=== PATIENT | female | born 1940 | race Caucasian/White ===

== ENCOUNTER 2017-05-16 13:54 | Inpatient (IN) | payer OTHER ==
--- NOTE | 2017-05-16 14:38 | CPEKG ---
Heart Rate: 115 RR Interval: 522 QRSD Interval: 88 QT Interval: 336 QTC Interval: 465 QRS Randle: 3 T Wave Randle: 25 EKG Severity - ABNORMAL ECG - EKG Impression: ATRIAL FIBRILLATION Electronically Signed By: Ralph English 16-May-2017 14:47:44
[2017-05-16] MEDS ORDERED: niCARdipine/NACL/200 ML BAG IV ONE (14:44)
[2017-05-16] MEDS ORDERED: DILTIAZEM 25 MG/5 ML VIAL IVP ONE (14:48)
[2017-05-16] MEDS ORDERED: FUROSEMIDE 40 MG/4 ML VIAL IVP ONE (14:48)
--- NOTE | 2017-05-16 14:52 | EDPHY ---
H & P Stated Complaint: SENT FOR Afib/sob/peripheral edema Time Seen by Provider: 05/16/17 14:40 HPI/ROS: CHIEF COMPLAINT: Edema and weight gain HISTORY OF PRESENT ILLNESS: The patient is a 76-year-old female who presented today to her primary care's office Dr. Rodriguez complaining of lower extremity swelling bilaterally and 10 lb weight gain as well as increased shortness of breath with exertion over the last few weeks. She denies recent fevers or illness. She denies chest pain. She denies shortness of breath at baseline. She denies nausea vomiting or diarrhea. See she denies any cardiac or pulmonary history. She was told that she had atrial fibrillation at come to the hospital. She does not notice any palpitations. REVIEW OF SYSTEMS: Constitutional: denies: chills, fever, recent illness, recent injury EENTM: denies: blurred vision, double vision, nose congestion Respiratory: See HPI denies: cough Cardiac: See HPI denies: chest pain, irregular heart rate, lightheadedness, palpitations Gastrointestinal/Abdominal: denies: abdominal pain, diarrhea, nausea, vomiting, blood streaked stools Genitourinary: denies: dysuria, frequency, hematuria, pain Musculoskeletal: denies: joint pain, muscle pain Skin: denies: lesions, rash, jaundice, bruising Neurological: denies: headache, numbness, paresthesia, tingling, dizziness, weakness Hematologic/Lymphatic: denies: blood clots, easy bleeding, easy bruising Immunologic/allergic: denies: HIV/AIDS, transplant EXAM: GENERAL: Well-appearing, well-nourished and in no acute distress. HEAD: Atraumatic, normocephalic. EYES: Pupils equal round and reactive to light, extraocular movements intact, sclera anicteric, conjunctiva are normal. ENT: TMs normal, nares patent, oropharynx clear without exudates. Moist mucous membranes. NECK: Normal range of motion, supple without lymphadenopathy or JVD. LUNGS: Mild crackles bilateral bases . HEART: Irregular rate and rhythm without murmurs, rubs or gallops. ABDOMEN: Soft, nontender, normoactive bowel sounds. No guarding, no rebound. No masses appreciated. BACK: No CVA tenderness, no spinal tenderness, step-offs or deformities EXTREMITIES: Normal range of motion, no pitting or edema. No clubbing or cyanosis. NEUROLOGICAL: Cranial nerves II through XII grossly intact. Normal speech, normal gait. 5/5 strength, normal movement in all extremities, normal sensation PSYCH: Normal mood, normal affect. SKIN: Warm, dry, normal turgor, no visible rashes or lesions. Source: Patient Exam Limitations: No limitations - Personal History Current Tetanus/Diphtheria Vaccine: Yes - Medical/Surgical History Hx Asthma: No Hx Chronic Respiratory Disease: No Hx Diabetes: No Hx Cardiac Disease: No Hx Renal Disease: No Hx Cirrhosis: No Hx Alcoholism: No Hx HIV/AIDS: No Hx Splenectomy or Spleen Trauma: No Other PMH: HTN, anemia, l total knee, hernia repair surgery x2, myelofibrosis, cataract sgy, arthritis - Family History Significant Family History: No pertinent family hx - Social History Smoking Status: Former smoker Alcohol Use: Sober Drug Use: None Constitutional: Initial Vital Signs Temperature (C) 36.7 C 05/16/17 14:22 Heart Rate 124 H 05/16/17 14:22 Respiratory Rate 20 05/16/17 14:22 Blood Pressure 141/82 H 05/16/17 14:22 O2 Sat (%) 98 05/16/17 14:22 O2 Delivery Mode Room Air Allergies/Adverse Reactions: Penicillins Allergy (Verified 05/16/17 14:21) Itching BEE STINGS Allergy (Uncoded 12/29/14 15:20) Home Medications: Medication Instructions Recorded Cholecalciferol Vit D3 [Vitamin D3 1,000 units PO DAILY 10/08/15 (*)] Lisinopril [Zestril 5 mg (*)] 5 mg PO DAILY 10/08/15 Estradiol [Yuvafem] 10 mcg [facility] 05/16/17 Medical Decision Making - Diagnostics EKG Interpretation: An EKG obtained and was read and documented in trace view. Please see trace view for full reading and report. Atrial fibrillation, new compared to previous Imaging Results: Imaging Impressions Chest X-Ray 05/16/17 14:48 Impression: Small subpulmonic right pleural effusion, new. Borderline cardiac enlargement.. Imaging: Discussed imaging studies w/ inspector handbag frames Radiologist ED Course/Re-evaluation: The patient is feeling better after Lasix. Her heart rate was controlled initially with diltiazem but then rebounded. I will start her on a drip. I spoke with Dr. Khoi Galan who will admit to the hospital service. Differential Diagnosis: Partial list of the Differential diagnosis considered include but were not limited to; CHF exacerbation, pulmonary edema, atrial fibrillation and although unlikely based on the history and physical exam, I also considered infection, acute coronary disease. - Data Points Laboratory Results: Laboratory Results 05/16/17 14:37 05/16/17 14:37 05/16/17 05/16/17 05/16/17 14:37 14:37 14:37 WBC 4.61 10^3/uL 10^3/uL (3.80-9.50) RBC 3.51 10^6/uL L 10^6/uL (4.18-5.33) Hgb 9.9 g/dL L g/dL (12.6-16.3) Hct 32.3 % L % (38.0-47.0) MCV 92.0 fL fL (81.5-99.8) MCH 28.2 pg pg (27.9-34.1) MCHC 30.7 g/dL L g/dL (32.4-36.7) RDW 20.2 % H % (11.5-15.2) Plt Count 125 10^3/uL L 10^3/uL (150-400) MPV 9.9 fL fL (8.7-11.7) Neut % (Auto) Not Reported Lymph % (Auto) Not Reported Weber % (Auto) Not Reported Eos % (Auto) Not Reported Baso % (Auto) Not Reported Nucleat RBC Rel Count 3.9 % H % (0.0-0.2) Absolute Neuts (auto) Not Reported Absolute Lymphs (auto) Not Reported Absolute Monos (auto) Not Reported Absolute Eos (auto) Not Reported Absolute Basos (auto) Not Reported Absolute Nucleated RBC 0.18 10^3/uL H 10^3/uL (0-0.01) Immature Gran % Not Reported Seg Neutrophils % 36 % % Band Neutrophils % 12 % % Lymphocytes % 24 % % Monocytes % 9 % % Eosinophils % 2 % % Metamyelocytes % 8 % % Myelocytes % 6 % % Promyelocytes % 1 % % Blast Cells % 2 % % Immature Gran # Not Reported Absolute Seg Neuts 1.66 10^/uL L 10^/uL (1.70-6.50) Absolute Band Neuts 0.55 10^3/uL 10^3/uL (0.00-0.70) Absolute Lymphocytes 1.11 10^3/uL 10^3/uL (1.00-3.00) Absolute Monocytes 0.41 10^3/uL 10^3/uL (0.30-0.80) Absolute Eosinophils 0.09 10^3/uL 10^3/uL (0.03-0.40) Absolute Metamyelocyte 0.37 10^3/mL H 10^3/mL (0.00-0.00) Absolute Myelocytes 0.28 10^3/mL H 10^3/mL (0.00-0.00) Absolute Promyelocytes 0.05 10^3/uL H 10^3/uL (0.00-0.00) Nucleated RBCs 4 /100 WBC H /100 WBC (0-0) Atypical Lymphocytes 1+ H Absolute Blast Cells 0.09 10^3/uL H 10^3/uL (0.00-0.00) Platelet Estimate ADEQUATE (ADEQ) Polychromasia 1+ H Hypochromasia 1+ H Microcytic Cells 1+ H Tear Drop Cells 1+ H Smear Review By Tatyana COOL MD PT 14.3 SEC SEC (12.0-15.0) INR 1.12 (0.83-1.16) APTT 29.8 SEC SEC (23.0-38.0) Sodium 136 mEq/L mEq/L (134-144) Potassium 5.0 mEq/L mEq/L (3.5-5.2) Chloride 101 mEq/L mEq/L (97-110) Carbon Dioxide 23 mEq/l mEq/l (22-31) Anion Gap 12 mEq/L mEq/L (8-16) BUN 17 mg/dL mg/dL (7-23) Creatinine 0.7 mg/dL mg/dL (0.6-1.0) Estimated GFR > 60 Glucose 105 mg/dL H mg/dL (70-100) Calcium 9.4 mg/dL mg/dL (8.5-10.4) Total Bilirubin 1.1 mg/dL mg/dL (0.1-1.4) Conjugated Bilirubin 0.4 mg/dL mg/dL (0.0-0.5) Unconjugated Bilirubin 0.7 mg/dL mg/dL (0.0-1.1) AST 47 IU/L H IU/L (14-46) ALT 79 IU/L H IU/L (9-52) Alkaline Phosphatase 215 IU/L H IU/L (38-126) Troponin I < 0.012 ng/mL ng/mL (0.000-0.034) NT-Pro-B Natriuret Pep 2070 pg/mL H pg/mL (0-450) Total Protein 7.2 g/dL g/dL (6.3-8.2) Albumin 4.5 g/dL g/dL (3.5-5.0) Lipase 37 IU/L IU/L (23-300) Medications Given: Enoxaparin Sodium (Lovenox) 60 mg SC BID [facility] Stop: 11/12/17 17:06 Last Admin: 05/16/17 22:06 Dose: 60 mg Metoprolol Tartrate (Lopressor) 25 mg PO BID [facility] Stop: 11/12/17 17:07 Last Admin: 05/16/17 22:07 Dose: Not Given Discontinued Medications Diltiazem HCl (Cardizem 25 Mg/5 Ml Vial) 10 mg IVP EDNOW ONE Stop: 05/16/17 14:49 Last Admin: 05/16/17 15:04 Dose: 10 mg Furosemide (Lasix Injection) 40 mg IVP EDNOW ONE Stop: 05/16/17 14:49 Last Admin: 05/16/17 15:04 Dose: 40 mg Diltiazem HCl 125 mg/ Dextrose 125 mls @ 0 mls/hr IV EDNOW ONE; As Directed PRN Reason: Protocol Stop: 05/16/17 15:54 Last Admin: 05/16/17 16:02 Dose: Not Given Departure - Departure Disposition: [facility] Acute Clinical Impression: Atrial fibrillation Qualifiers: Atrial fibrillation type: unspecified Qualified Code(s): I48.91 - Unspecified atrial fibrillation Pulmonary edema Qualifiers: Chronicity: acute Qualified Code(s): J81.0 - Acute pulmonary edema Condition: Fair
[2017-05-16 14:54] LABS: ABSOLUTE NRBC COUNT 0.18 10^3/uL (0-0.01); ADD DIFF? YES; ADD MORPH? YES; HEMATOCRIT 32.3 % (38.0-47.0); HEMOGLOBIN 9.9 g/dL (12.6-16.3); LEFT SHIFT FLG 160 (0-99); LIPEMIA HEMOLYSIS FLAG 80 (0-99); MEAN CELL HEMOGLOBIN 28.2 pg (27.9-34.1); MEAN CELL HEMOGLOBIN CONCENTR. 30.7 g/dL (32.4-36.7); MEAN PLATELET VOLUME 9.9 fL (8.7-11.7); NRBC-AUTO% 3.9 % (0.0-0.2); PLATELET CLUMPS FLAG 20 (0-99); PLATELET COUNT 125 10^3/uL (150-400); RED BLOOD CELL COUNT 3.51 10^6/uL (4.18-5.33); RED CELL DISTRIBUTION WIDTH 20.2 % (11.5-15.2)
[2017-05-16 14:55] LABS: ATYPICAL LYMPHOCYTE FLAG 120 (0-99); FRAGMENT RBC FLAG 100 (0-99)
[2017-05-16 15:04] LABS: INR 1.12 (0.83-1.16); PROTIME(PATIENT) 14.3 SEC (12.0-15.0)
[2017-05-16 15:05] LABS: APTT 29.8 SEC (23.0-38.0)
[2017-05-16 15:07] LABS: ALANINE AMINOTRANSFERASE 79 IU/L (9-52); ALBUMIN 4.5 g/dL (3.5-5.0); ALKALINE PHOSPHATASE 215 IU/L (38-126); ANION GAP 12 mEq/L (8-16); ASPARTATE AMINOTRANSFERASE 47 IU/L (14-46); BILIRUBIN,TOTAL 1.1 mg/dL (0.1-1.4); BILIRUBIN-CONJUGATED 0.4 mg/dL (0.0-0.5); BILIRUBIN-UNCONJUGATED 0.7 mg/dL (0.0-1.1); CALCIUM 9.4 mg/dL (8.5-10.4); CARBON DIOXIDE 23 mEq/l (22-31); CHLORIDE 101 mEq/L (97-110); CREATININE 0.7 mg/dL (0.6-1.0); GLOMERULAR FILTRATION RATE > 60; GLUCOSE 105 mg/dL (70-100); SODIUM 136 mEq/L (134-144); TOTAL PROTEIN 7.2 g/dL (6.3-8.2)
[2017-05-16 15:19] LABS: TROPONIN I < 0.012 ng/mL (0.000-0.034)
[2017-05-16 15:43] LABS: ADD SCAN? YES; SCAN POSITIVE
[2017-05-16] MEDS ORDERED: DILTIAZEM 125 MG in D5W 125 ML IV ONE (15:53)
[2017-05-16 15:55] LABS: HYPOCHROMIA 1+; MICROCYTES 1+; PLATELET ESTIMATE ADEQUATE (ADEQ); POLYCHROMASIA 1+
[2017-05-16] MEDS ORDERED: ONDANSETRON DISINTEGRATING 4 MG TAB PO PRN (17:02)
[2017-05-16] MEDS ORDERED: ONDANSETRON 4 MG/2 ML VIAL IVP PRN (17:02)
[2017-05-16] MEDS ORDERED: ACETAMINOPHEN 325 MG TAB PO PRN (17:02)
--- NOTE | 2017-05-16 17:13 | PDGENHP ---
History and Physical - Chief Complaint Acute edema - History of Present Illness Primary care provider: Dr. Ayleen Rodriguez Primary oncologist: Dr. Nay Ferris Primary general surgeon: Dr. Olivia Swan Primary orthopedist: Dr. Rodríguez HPI: 76-year-old female presents with acute edema characterized as swelling located in the bilateral lower extremities as well as abdomen with associated shortness of breath, 10 lb weight gain over 1 week. Patient reports that approximately 1/2 weeks ago, she began experiencing shortness of breath which was exacerbated by activity and exertion. Is alleviated by rest. Was not modified by body position or lying supine. She then noted weight gain and significant lower extremity edema approximately 4 days ago. She denies any chest pain or palpitations. She reports that prior to onset of symptoms, she had otherwise been feeling well. She reports that her appetite has been good and her oral intake of solids and liquids has been adequate. She was at Dr. Ayleen Rodriguez office for evaluation when it was noted that her heart rate was elevated and she was in atrial fibrillation. History Information - Allergies/Home Medication List Allergies/Adverse Reactions: Penicillins Allergy (Verified 05/16/17 14:21) Itching BEE STINGS Allergy (Uncoded 12/29/14 15:20) Home Medications: Cholecalciferol Vit D3 [Vitamin D3 (*)] 1,000 units PO DAILY 10/08/15 [Last Taken 10/24/15] Lisinopril [Zestril 5 mg (*)] 5 mg PO DAILY 10/08/15 [Last Taken 05/16/17] Estradiol [Yuvafem] 10 mcg [facility] 05/16/17 [Last Taken 05/14/17] I have personally reviewed and updated: family history, medical history, social history, surgical history - Past Medical History Additional medical history: Myelofibrosis. Osteoarthritis. Skin cancer. Macular degeneration. Recurrent right inguinal hernia. Hypertension. Anemia with baseline hemoglobin 8-9 - Surgical History Additional surgical history: Bilateral hernia repair. TKA. Cataract surgery. Left hip steroid injection - Family History Additional family history: Brother with lung cancer, sister with venous thromboembolism, nobody with atrial fibrillation - Social History Smoking Status: Former smoker Alcohol Use: Sober (No history of alcohol withdrawal) Drug Use: None Additional social history: Independent in ADLs Review of Systems ROS: 10pt was reviewed & negative except for what was stated in HPI & below Constitutional: Reports: other (Weight gain) Cardiac: Reports: edema Respiratory: Reports: shortness of breath Physical Exam Temp Pulse Resp BP Pulse Ox 36.7 C 104 H 17 94/74 L 96 05/16/17 14:22 05/16/17 16:01 05/16/17 15:07 05/16/17 16:01 05/16/17 15:07 Constitutional: no apparent distress, appears nourished, not in pain, No uncomfortable Eyes: PERRL, anicteric sclera, EOMI Ears, Nose, Mouth, Throat: moist mucous membranes, hearing normal, ears appear normal, no oral mucosal ulcers Cardiovascular: irregularly irregular, JVD, tachycardia, edema (1+ bilateral lower extremity), No systolic murmur Respiratory: no respiratory distress, no rales or rhonchi, clear to auscultation Gastrointestinal: normoactive bowel sounds, soft, non-tender abdomen, distension (Moderately), other (Splenomegaly, nontender), No no palpable masses , No guarding Skin: warm, normal color, no rashes or abrasions, no fluctuance, no induration, No mottled Neurologic: AAOx3, sensation intact bilaterally, No weakness (Motor 5/5 bilateral lower extremity) Psychiatric: interacting appropriately, not anxious, not encephalopathic, thought process linear Lab Data & Imaging Review 05/16/17 14:37 05/16/17 14:37 WBC 4.61 10^3/uL (3.80-9.50) 05/16/17 14:37 RBC 3.51 10^6/uL (4.18-5.33) L 05/16/17 14:37 Hgb 9.9 g/dL (12.6-16.3) L 05/16/17 14:37 Hct 32.3 % (38.0-47.0) L 05/16/17 14:37 MCV 92.0 fL (81.5-99.8) 05/16/17 14:37 MCH 28.2 pg (27.9-34.1) 05/16/17 14:37 MCHC 30.7 g/dL (32.4-36.7) L 05/16/17 14:37 RDW 20.2 % (11.5-15.2) H 05/16/17 14:37 Plt Count 125 10^3/uL (150-400) L 05/16/17 14:37 MPV 9.9 fL (8.7-11.7) 05/16/17 14:37 Neut % (Auto) Not Reported 05/16/17 14:37 Lymph % (Auto) Not Reported 05/16/17 14:37 Giles % (Auto) Not Reported 05/16/17 14:37 Eos % (Auto) Not Reported 05/16/17 14:37 Baso % (Auto) Not Reported 05/16/17 14:37 Nucleat RBC Rel Count 3.9 % (0.0-0.2) H 05/16/17 14:37 Absolute Neuts (auto) Not Reported 05/16/17 14:37 Absolute Lymphs (auto) Not Reported 05/16/17 14:37 Absolute Monos (auto) Not Reported 05/16/17 14:37 Absolute Eos (auto) Not Reported 05/16/17 14:37 Absolute Basos (auto) Not Reported 05/16/17 14:37 Absolute Nucleated RBC 0.18 10^3/uL (0-0.01) H 05/16/17 14:37 Immature Gran % Not Reported 05/16/17 14:37 Seg Neutrophils % 36 % 05/16/17 14:37 Band Neutrophils % 12 % 05/16/17 14:37 Lymphocytes % 24 % 05/16/17 14:37 Monocytes % 9 % 05/16/17 14:37 Eosinophils % 2 % 05/16/17 14:37 Metamyelocytes % 8 % 05/16/17 14:37 Myelocytes % 6 % 05/16/17 14:37 Promyelocytes % 1 % 05/16/17 14:37 Blast Cells % 2 % 05/16/17 14:37 Immature Gran # Not Reported 05/16/17 14:37 Absolute Seg Neuts 1.66 10^/uL (1.70-6.50) L 05/16/17 14:37 Absolute Band Neuts 0.55 10^3/uL (0.00-0.70) 05/16/17 14:37 Absolute Lymphocytes 1.11 10^3/uL (1.00-3.00) 05/16/17 14:37 Absolute Monocytes 0.41 10^3/uL (0.30-0.80) 05/16/17 14:37 Absolute Eosinophils 0.09 10^3/uL (0.03-0.40) 05/16/17 14:37 Absolute Metamyelocyte 0.37 10^3/mL (0.00-0.00) H 05/16/17 14:37 Absolute Myelocytes 0.28 10^3/mL (0.00-0.00) H 05/16/17 14:37 Absolute Promyelocytes 0.05 10^3/uL (0.00-0.00) H 05/16/17 14:37 Nucleated RBCs 4 /100 WBC (0-0) H 05/16/17 14:37 Atypical Lymphocytes 1+ H 05/16/17 14:37 Absolute Blast Cells 0.09 10^3/uL (0.00-0.00) H 05/16/17 14:37 Platelet Estimate ADEQUATE (ADEQ) 05/16/17 14:37 Polychromasia 1+ H 05/16/17 14:37 Hypochromasia 1+ H 05/16/17 14:37 Microcytic Cells 1+ H 05/16/17 14:37 Tear Drop Cells 1+ H 05/16/17 14:37 Smear Review By Tatyana COOL MD 05/16/17 14:37 PT 14.3 SEC (12.0-15.0) 05/16/17 14:37 INR 1.12 (0.83-1.16) 05/16/17 14:37 APTT 29.8 SEC (23.0-38.0) 05/16/17 14:37 Sodium 136 mEq/L (134-144) 05/16/17 14:37 Potassium 5.0 mEq/L (3.5-5.2) 05/16/17 14:37 Chloride 101 mEq/L (97-110) 05/16/17 14:37 Carbon Dioxide 23 mEq/l (22-31) 05/16/17 14:37 Anion Gap 12 mEq/L (8-16) 05/16/17 14:37 BUN 17 mg/dL (7-23) 05/16/17 14:37 Creatinine 0.7 mg/dL (0.6-1.0) 05/16/17 14:37 Estimated GFR > 60 05/16/17 14:37 Glucose 105 mg/dL (70-100) H 05/16/17 14:37 Calcium 9.4 mg/dL (8.5-10.4) 05/16/17 14:37 Total Bilirubin 1.1 mg/dL (0.1-1.4) 05/16/17 14:37 Conjugated Bilirubin 0.4 mg/dL (0.0-0.5) 05/16/17 14:37 Unconjugated Bilirubin 0.7 mg/dL (0.0-1.1) 05/16/17 14:37 AST 47 IU/L (14-46) H 05/16/17 14:37 ALT 79 IU/L (9-52) H 05/16/17 14:37 Alkaline Phosphatase 215 IU/L (38-126) H 05/16/17 14:37 Troponin I < 0.012 ng/mL (0.000-0.034) 05/16/17 14:37 NT-Pro-B Natriuret Pep 2070 pg/mL (0-450) H 05/16/17 14:37 Total Protein 7.2 g/dL (6.3-8.2) 05/16/17 14:37 Albumin 4.5 g/dL (3.5-5.0) 05/16/17 14:37 Lipase 37 IU/L (23-300) 05/16/17 14:37 Visualized and Interpreted Chest x-ray results: Yes Chest X-Ray results: no infiltrate, other (Cardiomegaly) Visualized and Interpreted EKG results: Yes EKG Interpretation: Positive for: other (Atrial fibrillation with rapid ventricular response) Assessment & Plan Assessment: 76-year-old female presents with new onset atrial fibrillation with acute rapid ventricular response and subsequent acute diastolic congestive heart failure exacerbation Plan: 1. Atrial fibrillation. Acute, new problem this provider, further workup indicated. New onset, acute RVR, discussed with Dr. Bebo Montoya and he has reported to me that the patient received 10 mg of IV diltiazem in the emergency department, her rate subsequently slowed, but her systolic blood pressure also declined, decision made in the emergency department not to administer diltiazem drip given that her heart rate was around 100 -administered 25 mg of oral metoprolol now, gauge effect, up titrate if needed -systemically anticoagulated case the patient chemically cardiovert, discussed with Dr. David Pena, plan for abby with DC cardioversion tomorrow a.m. if she remains in AFib -get TSH -get echocardiogram -will need cardiac risk stratification, but not in the setting of rapid ventricular response 2. Acute diastolic congestive heart failure exacerbation. Evidenced by 10 lb weight gain, lower extremity edema, abdominal bloating, secondary to rapid ventricular response and impaired diastole -status post Lasix in the emergency department, with good urine output -hold on further Lasix, goal will be rate control and then diuresis once that has been achieved -monitor I&Os, weights, creatinine, potassium 3. Myelofibrosis. Chronic, reviewed outside records including 07/12/[address] Liz Moreno, discussing patient's most recent hospitalization for neutropenic fever in the setting of myelofibrosis with baseline hemoglobin level around 8-9 -no indication for transfusion -platelet level is a safe threshold for systemic anticoagulation 4. Transaminitis. Acute, most likely secondary to hepatic congestion in the setting of above, continue to monitor as we rate control 5. Hypertension. Chronic, hold lisinopril as we are introducing beta-ceferino Diet. Cardiac, NPO after midnight prophylaxis. High risk patient, systemic anticoagulation indicated Code. Do not resuscitate per patient, daughter is MPOA Disposition. Anticipated discharge is 05/17/2017, pending stabilization of condition as outlined above. If patient requires greater than 48 hours inpatient hospitalization for further stabilization or diagnostic workup, she will be upgraded to inpatient admission status at that time.
[2017-05-16] MEDS: ENOXAPARIN 60 MG/0.6 ML SYR SC SCH ×2 (17:57→22:06)
[2017-05-16] MEDS: METOPROLOL TARTRATE 25 MG TAB PO SCH ×2 (17:57→22:07)
[2017-05-17 05:03] LABS: INR 1.26 (0.83-1.16); PROTIME(PATIENT) 15.8 SEC (12.0-15.0)
[2017-05-17 05:04] LABS: APTT 38.7 SEC (23.0-38.0)
[2017-05-17 05:15] LABS: ASPARTATE AMINOTRANSFERASE 31 IU/L (14-46); BILIRUBIN,TOTAL 1.1 mg/dL (0.1-1.4); CARBON DIOXIDE 25 mEq/l (22-31); CREATININE 0.7 mg/dL (0.6-1.0); GLOMERULAR FILTRATION RATE > 60; MAGNESIUM 2.1 mg/dL (1.6-2.3); POTASSIUM 3.9 mEq/L (3.5-5.2); TOTAL PROTEIN 5.9 g/dL (6.3-8.2)
[2017-05-17 05:23] LABS: ALANINE AMINOTRANSFERASE 66 IU/L (9-52); ALBUMIN 3.5 g/dL (3.5-5.0); ALKALINE PHOSPHATASE 184 IU/L (38-126); ANION GAP 9 mEq/L (8-16); CHLORIDE 104 mEq/L (97-110); GLUCOSE 94 mg/dL (70-100); SODIUM 138 mEq/L (134-144)
[2017-05-17 05:51] LABS: ABSOLUTE NRBC COUNT 0.14 10^3/uL (0-0.01); ADD DIFF? YES; ADD MORPH? YES; ADD SCAN? NO; ATYPICAL LYMPHOCYTE FLAG 100 (0-99); FRAGMENT RBC FLAG 80 (0-99); HEMATOCRIT 27.6 % (38.0-47.0); HEMOGLOBIN 8.3 g/dL (12.6-16.3); LEFT SHIFT FLG 140 (0-99); LIPEMIA HEMOLYSIS FLAG 80 (0-99); MEAN CELL HEMOGLOBIN 27.6 pg (27.9-34.1); MEAN CELL HEMOGLOBIN CONCENTR. 30.1 g/dL (32.4-36.7); MEAN CELL VOLUME 91.7 fL (81.5-99.8); MEAN PLATELET VOLUME 9.4 fL (8.7-11.7); PLATELET CLUMPS FLAG 10 (0-99); PLATELET COUNT 116 10^3/uL (150-400); RED BLOOD CELL COUNT 3.01 10^6/uL (4.18-5.33)
[2017-05-17 05:52] LABS: TROPONIN I < 0.012 ng/mL (0.000-0.034)
[2017-05-17 06:02] LABS: MICROCYTES 1+; PLATELET ESTIMATE DECREASED (ADEQ); POLYCHROMASIA 1+
[2017-05-17 06:03] LABS: ELLIPTOCYTES 1+
[2017-05-17] MEDS ORDERED: METOPROLOL TARTRATE 25 MG TAB PO ONE (09:20)
[2017-05-17] MEDS: METOPROLOL TARTRATE 50 MG TAB PO SCH ×2 (09:53→21:11)
[2017-05-17] MEDS: CHOLECALCIFEROL VIT D3 1,000 UNITS TAB PO SCH (09:53)
[2017-05-17] MEDS: ENOXAPARIN 60 MG/0.6 ML SYR SC SCH (09:54)
[2017-05-17] MEDS ORDERED: METOPROLOL TARTRATE 25 MG TAB PO SCH (10:00)
--- NOTE | 2017-05-17 10:27 | ECHO ---
[id number] + + [address] : : [place] [address] : : [phone] + + Adult Echocardiographic Report + ------+ :Name: DEBBIGIANAWAQAS MStudy Date: 05/17/2017 08:00 AM : : Hospital Admission Number: [id number] Locatio n: 207: :: 1940 Gender: Female Height: 5 in : :Age: 76 yrs Race: WH Weight: 137 lb : :Reason For Study: Eval for cardiomyopathy/new AF : : BSA: 0.26 meter s2 : + ------+ MMode/2D Measurements & Calculations IVSd: 0.70 cm LVIDd: 4.4 cm FS: 38.1 % MV Diam: 3.0 cm LVPWd: 0.90 cm LVIDs: 2.7 cm EDV(Teich): 88.2 ml ESV(Teich): 27.8 ml EF(Teich): 68.5 % Ao root diam: LVOT diam: 1.9 cmLVLd ap4: 7.8 cm SV(MOD-sp4): 2.9 cm LVOT area: EDV(MOD-sp4): 38.0 ml LA dimension: 2.8 cm2 58.0 ml 4.0 cm LVLs ap4: 6.8 cm ESV(MOD-sp4): 20.0 ml EF(MOD-sp4): 65.5 % Normal Measurement Values: + + :LVIDd (3.5-5.7cm) IVSd (0.6-1.1cm) LVPWd (0.6-1.1cm) Aortic Root (2.0-3.7cm)Left Atrium (1.5-4.0cm): :LV Vol(d) (76-115ml) LV Vol(s) (29-48ml) Ejec Fraction (50-65%)PV Nick (0.6- 1.2m/s) TV Nick (0.4-1.0m/s) : :MV E Nick (0.8-1.0m/s)MV A Nick (0.3-1.0m/s)LVOT Nick (0.7-1.2m/s) Asc Ao Nick ( 0.9-1.8m/s) : + + Doppler Measurements & Calculations MV E max nick: MV V2 max: Ao V2 max: LV V1 max: 111.0 cm/sec 109.0 cm/sec 187.0 cm/sec 76.7 cm/sec MV max P.8 mmHg Ao max PG: LV V1 max PG: MV V2 mean: 15.6 mmHg 2.4 mmHg 60.8 cm/sec Ao mean PG: LV V1 mean PG: MV mean P.0 mmHg3.0 mmHg 1.0 mmHg MV V2 VTI: 16.2 cm Ao V2 mean: LV V1 mean: MV area (1 diam): 85.2 cm/sec 46.5 cm/sec 7.1 cm2 Ao V2 VTI: 22.1 cm LV V1 VTI: 14.2 cm MARGIE(I,D): 1.8 cm2 MVA(VTI): 2.5 cm2 MV Flow area(1diam):MARGIE(V,D): 1.2 cm2 7.1 cm2 MR max nick: MR(RF 1 diam): SV(MV 1 diam): TR max nick: 543.0 cm/sec 16.7 % 114.5 ml 354.0 cm/sec MR max PG: SI(MV 1 diam): TR max P.9 mmHg 436.5 ml/m2 50.1 mmHg SV(LVOT): 40.3 ml RAP systole: 15.0 mmHg RVSP(TR): 65.1 mmHg RF(MV,Ao)(1 diam): -0.27 RF(MV,LVOT)(1diam): 0.65 Left Ventricle The left ventricle is normal in size. There is normal left ventricular wall thickness. Left ventricular systolic function is normal. Ejection Fraction = 65-70%. No regional wall motion abnormalities noted. Right Ventricle The right ventricle is normal in size and function. Atria The left atrium is mild to moderately dilated. The right atrium is severely dilated. The interatrial septum is intact with no evidence for an atrial septal defect. Mitral Valve The mitral valve is normal in structure and function. There is no evidence of mitral valve prolapse. There is no mitral valve stenosis. There is moderate mitral regurgitation. Tricuspid Valve Normal tricuspid valve. There is severe tricuspid regurgitation. Right ventricular systolic pressure is 65-70mmHg. There is Doppler evidence for moderate pulmonary hypertension. Aortic Valve The aortic valve is trileaflet. The aortic valve opens well. There is no aortic stenosis. There is no aortic insufficiency. Pulmonic Valve The pulmonic valve is normal in structure and function. Mild pulmonic valvular regurgitation. Great Vessels The aortic root is normal size. Pericardium/Pleural trivial pericardial effusion. Conclusion A complete two-dimensional transthoracic echocardiogram was performed (2D, M-mode, Doppler and color flow Doppler). The patient has a dilated IVC. Left ventricular systolic function is normal. Ejection Fraction = 65-70%. The left atrium is mild to moderately dilated. The right atrium is severely dilated. There is moderate mitral regurgitation. There is severe tricuspid regurgitation. Right ventricular systolic pressure is 65-70mmHg. There is Doppler evidence for moderate pulmonary hypertension. Mild pulmonic valvular regurgitation. trivial pericardial effusion. The patient has a dilated IVC. Final Reading Physician: Dario Kendall signed on 05/17/2017 10:25 AM Ordering Physician: Adan Hightower Performed By: Andria Taveras RDCS
[2017-05-17 11:08] LABS: INR 1.24 (0.83-1.16); PROTIME(PATIENT) 15.6 SEC (12.0-15.0)
[2017-05-17 11:09] LABS: APTT 37.7 SEC (23.0-38.0)
[2017-05-17 11:12] LABS: CALCIUM 8.9 mg/dL (8.5-10.4); CREATININE 0.6 mg/dL (0.6-1.0); GLOMERULAR FILTRATION RATE > 60; GLUCOSE 88 mg/dL (70-100); MAGNESIUM 2.1 mg/dL (1.6-2.3)
[2017-05-17] MEDS: METOPROLOL TARTRATE 25 MG TAB PO SCH (11:13)
[2017-05-17 11:59] LABS: ANION GAP 13 mEq/L (8-16); CARBON DIOXIDE 23 mEq/l (22-31); CHLORIDE 105 mEq/L (97-110); POTASSIUM 4.5 mEq/L (3.5-5.2); SODIUM 141 mEq/L (134-144)
--- NOTE | 2017-05-17 12:48 | PDANEPAE ---
ANE History of Present Illness 76 yo female with 2 weeks of Afib with RVR and fatigue. ANE Past Medical History - Cardiovascular History Hx Hypertension: Yes Hx Arrhythmias: Yes Hx Chest Pain: No Hx Coronary Artery / Peripheral Vascular Disease: No Hx CHF / Valvular Disease: No Hx Palpitations: No Cardiovascular History Comment: PCP MONITORS BP MEDS - Pulmonary History Hx COPD: No Hx Asthma/Reactive Airway Disease: No Hx Recent Upper Respiratory Infection: No Hx Oxygen in Use at Home: No Hx Sleep Apnea: No - Neurologic History Hx Cerebrovascular Accident: No Hx Seizures: No Hx Dementia: No - Endocrine History Hx Diabetes: No - Renal History Hx Renal Disorders: Yes Renal History Comment: HX OF UTI'S - Liver History Hx Hepatic Disorders: No - Neurological & Psychiatric Hx Hx Neurological and Psychiatric Disorders: No - Cancer History Hx Cancer: No Cancer History Comment: SQUAMOUS CELL REMOVED FROM LEGS AND FOREHEAD - Congenital Disorder History Hx Congenital Disorders: No - GI History Hx Gastrointestinal Disorders: Yes Gastrointestinal History Comment: CONSTIPATION- USES MOM PRN - Other Health History Other Health History: MYELOFIBROMA W/SPLENOMEGALY. -TRANSFUSION 07/09/2015. EYE INJECTIONS FOR MAC DEGENERATION Q3-4 MONTHS. - Chronic Pain History Chronic Pain: Yes (HIP PAIN) - Surgical History Prior Surgeries: L ING HERNIA 12/2014. LEFT KNEE SCOPE 12/2012. CATARACTS LEFT 2011 RIGHT 2012. BILATERAL INGUINAL HERNIA REPAIR 2005. SINUS SURGERY 2005 ANE Review of Systems Review of Systems: - Exercise capacity METS Comment: No URI/fever x2 weeks. Chronic cough. ANE Patient History - Allergies Allergies/Adverse Reactions: Penicillins Allergy (Verified 05/16/17 14:21) Itching BEE STINGS Allergy (Uncoded 12/29/14 15:20) - Home Medications Home medications: home medication list seen and reviewed Home Medications: Cholecalciferol Vit D3 [Vitamin D3 (*)] 1,000 units PO DAILY 10/08/15 [Last Taken 10/24/15] Lisinopril [Zestril 5 mg (*)] 5 mg PO DAILY 10/08/15 [Last Taken 05/16/17] Estradiol [Yuvafem] 10 mcg VG SUTH 05/16/17 [Last Taken 05/14/17] - NPO status NPO Status: no food or drink >8 hours - Anes Hx Anes Hx: no prior problems - Smoking Hx Smoking Status: Former smoker Marijuana use: No - Alcohol Use Alcohol Use: Sober - Family Anes Hx Family Anes Hx: neg - N/A Family Hx Anesthesia Complications: NONE ANE Labs/Vital Signs - Labs Result Diagrams: 05/17/17 03:28 05/17/17 10:40 - Vital Signs Blood Pressure: 107/60 Heart Rate: 104 Respiratory Rate: 17 O2 Sat (%): 91 Height: 165.1 cm Weight: 62.6 kg ANE Physical Exam - Airway Neck exam: FROM Mallampati Score: Class 2 Mouth exam: normal dental/mouth exam - Pulmonary Pulmonary: clear to auscultation - Cardiovascular Cardiovascular: irregularly irregular - ASA Status ASA Status: III ANE Anesthesia Plan Anesthesia Plan: GA with mask Total IV Anesthesia: Yes
--- NOTE | 2017-05-17 12:48 | PDHPUP ---
History & Physical Update H&P update statement: This history and physical update is based on an assessment of the patient which was completed after admission or registration (within 24 hours), but prior to the surgery/procedure. H&P update: H&P reviewed & patient examined, no change in patient's condition since H&P completed
[2017-05-17] MEDS ORDERED: LIDOCAINE 2% 5 ML SDV ONE (12:49)
[2017-05-17] MEDS ORDERED: PROPOFOL 200 MG/20 ML VIAL ONE (12:49)
[2017-05-17] MEDS ORDERED: ETOMIDATE 20 MG/10 ML VIAL IVP ONE (13:00)
[2017-05-17] MEDS ORDERED: fentaNYL 100 MCG/2 ML INJ IVP ONE (13:00)
[2017-05-17] MEDS ORDERED: BENZOCAINE UNIT DOSE SPRAY HURRICAINE MM ONE (13:00)
[2017-05-17] MEDS ORDERED: ATROPINE SULFATE 1 MG/10 ML SYR IVP ONE (13:00)
[2017-05-17] MEDS ORDERED: MIDAZOLAM 2 MG/2 ML VIAL IVP ONE (13:00)
[2017-05-17] MEDS ORDERED: AMIODARONE HCL 100 ML IV ONE (13:11)
[2017-05-17] MEDS ORDERED: AMIODARONE HCL 200 ML IV ONE (13:11)
--- NOTE | 2017-05-17 13:11 | PDTEE1 ---
ANN Cardioversion Procedure Procedure: Electrical Cardioversion, Transesophageal Echo Indications: Atrial Fibrillation Consent: Signed and in Chart Anticoagulation: Eliquis Procedural Details: Pads were placed in anterior-posterior position. ANN probe was advanced and standard images obtained. There is no evidence of left atrial or left atrial appendage thrombus. Synchronized cardioversion attempt #1: 200J Results: Normal sinus rhythm Conclusions: Successful ANN Cardioversion (Severe bi-atrial enlargement with torrential TR and moderate MR) Patient Problems: Problems Problem Status Onset Myelofibrosis Chronic Primary localized osteoarthritis of right hip Acute Anemia Acute Atrial fibrillation Acute Pulmonary edema Acute
--- NOTE | 2017-05-17 13:19 | CPEKG ---
Heart Rate: 88 RR Interval: 682 P-R Interval: 188 QRSD Interval: 90 QT Interval: 376 QTC Interval: 455 P [place]: -78 QRS [place]: -26 T Wave [place]: -61 EKG Severity - ABNORMAL ECG - EKG Impression: SINUS OR ECTOPIC ATRIAL RHYTHM EKG Impression: BORDERLINE LEFT AXIS DEVIATION EKG Impression: PROBABLE ANTEROSEPTAL INFARCT, AGE INDETERM EKG Impression: NONSPECIFIC T ABNORMALITIES, INFERIOR AND ANTERIOR LEADS EKG Impression: COMPARED WITH 16 MAY 2017, SINUS RHYTHM NOW PRESENT Electronically Signed By: Geovanna Sadler 17-May-2017 19:35:49
--- NOTE | 2017-05-17 13:42 | POSTANESTH ---
Post Anesthetic Evaluation Cardiovascular Status: Normal, Stable Respiratory Status: Similar to Pre-op Cond. Level of Consciousness/Mental Status: Can Participate in Eval, Mildly Sleepy, Arousable Pain Control: Adequate, Prn Tx Ordered Nausea/Vomiting Control: Adequate, Prn Tx Ordered Complications Possibly Related to Anesthesia: None Noted (Lower lip laceration - lip caught between teeth and bite block.)
--- NOTE | 2017-05-17 13:55 | CPEKG ---
Heart Rate: 56 RR Interval: 1071 P-R Interval: 144 QRSD Interval: 90 QT Interval: 448 QTC Interval: 433 P [place]: 83 QRS [place]: -14 T Wave [place]: -12 EKG Severity - ABNORMAL ECG - EKG Impression: SINUS RHYTHM EKG Impression: PROBABLE LEFT ATRIAL ABNORMALITY EKG Impression: LOW VOLTAGE IN FRONTAL LEADS EKG Impression: ABNORMAL T, CONSIDER ISCHEMIA, ANTERIOR LEADS EKG Impression: COMPARED WITH 17 MAY 2017 AT 13:17, CHANGE IN P WAVE MORPHOLOGY Electronically Signed By: Geovanna Sadler 17-May-2017 19:35:02
[2017-05-17] MEDS ORDERED: AMIODARONE A.FIB-6HR INFSN (ORDER 2/3) IV ONE (14:00)
[2017-05-17] MEDS ORDERED: AMIODARONE A.FIB-LOAD DOSE(ORDER 1/3) IV ONE (14:00)
--- NOTE | 2017-05-17 15:02 | GCON ---
[f rep st] CONSULTATION CARDIAC CONSULTATION DATE OF CONSULTATION: 05/17/2017 CHIEF COMPLAINT: Leg swelling. HISTORY OF PRESENT ILLNESS: The patient is a 76-year-old female with a history of hypertension and m yelofibrosis, who presented to the hospital with new onset atrial fibrillation with rapid ventricular rates. She felt well until approximately 2 weeks ago when she began to feel her heart pounding in h er neck. Her symptoms were worse with lying down. She is very active, walking a mile a day and has become short of breath with even minimal exertion such as walking up a flight of stairs. Her normal mild walk has also become more difficult. She became more concerned when she noticed swelling in her ankles over this past weekend. She also noted a 10 pound weight gain. On admission to the hospital , she was found to be in atrial fibrillation with rapid ventricular response. She was given diltiaze m IV which improved her rates, but unfortunately caused hypotension. She was then started on metopro lol p.o. Her initial troponins were negative. Her BNP was elevated at 20,070. An echocardiogram sh owed preserved LV function with an ejection fraction of 65% to 70%. Unfortunately, she does have sev ere valvular disease with at least moderate mitral regurgitation and severe tricuspid regurgitation. Her right ventricular systolic pressures were elevated at 65-70 indicating moderate pulmonary hypert ension. She was given 1 dose of IV Lasix and has lost approximately 6 pounds with an improvement in her lower extremity edema and abdominal fullness. PAST MEDICAL HISTORY: Hypertension, chronic anemia, myelofibrosis, prolapsed bladder, macular degene ration, osteoarthritis. PAST SURGICAL HISTORY: Hernia repair, knee replacement. FAMILY HISTORY: Her father was diagnosed with congestive heart failure at the age of 78. SOCIAL HISTORY: She denies any ongoing tobacco use. She does drink alcohol, will have 4 glasses of wine multiple times a week. She also was drinking a quart of tea a day, which seemed to help with co nstipation. MEDICATIONS: Home medications: Lisinopril 5 mg daily, vitamin D three daily, estradiol 10 mcg vagin ally Monday and . ALLERGIES: Penicillin. PHYSICAL EXAMINATION: GENERAL: The patient appears in no acute distress. VITALS: Blood pressure 1 19/85, heart rate 117, oxygen saturation of 93% on room air, afebrile. NECK: No carotid bruits. MICHAEL NGS: Clear to auscultation. No wheezes, rhonchi or crackles auscultated. CARDIAC: Irregular rate and rhythm with a 3/6 systolic murmur. ABDOMEN: Mildly distended with splenomegaly and bowel sounds present. EXTREMITIES: Palpable pulses bilaterally with mild lower extremity edema. SKIN: No obvi ous rashes or ecchymosis identified. PSYCHIATRIC: Mood and affect appropriate. REVIEW OF SYSTEMS: Negative except for what is stated in the H and P. LABORATORIES: Troponin negative x2. BNP 22,070. BMP within normal limits. AST 31, ALT 66. Alk ph os 184. Hemoglobin 8.3, hematocrit 27.6, platelets 116. EKG reveals atrial fibrillation with rapid ventricular response at a rate of 115 beats per minute and left axis deviation. Echocardiogram revealed preserved left ventricular systolic function with an ejection fraction of 65% to 70%. There is severe right atrial dilation, at least moderate mitral regurgitation, severe tricu spid regurgitation and elevated right ventricular systolic pressures of 65-70 mmHg with evidence of m oderate pulmonary hypertension. ASSESSMENT: The patient is a 76-year-old female who presents with new onset atrial fibrillation with rapid ventricular rate secondary to valvular heart disease. PLAN: The patient presents with newly diagnosed severe tricuspid regurgitation and at least moderate regurgitation as well as atrial fibrillation with rapid ventricular response secondary to her valvul ar disease. We will plan for a ANN cardioversion today to hopefully restore normal sinus rhythm and also better evaluate her valvular disease. Ultimately she will likely need either mitral valve clipp ing or mitral valve replacement/repair. After a cardioversion, she will need to remain on full dose anticoagulation for at least 1 month in the form of Eliquis. I would also recommend discontinuing li sinopril and using either calcium channel ceferino or a beta ceferino for treatment of her hypertension and atrial fibrillation. She is currently in mild congestive heart failure, but did diurese with IV Lasix yesterday. Once she is restored to normal sinus rhythm, her heart failure should continue to improve. Her LFTs are also elevated which is likely related to liver congestion. The patient was di scussed with Dr. Dickinson. /[id number]/MODL
--- NOTE | 2017-05-17 15:31 | HOSPPROG ---
Hospitalist Progress Note Assessment/Plan: * new atrial fibrillation * Cardiology will be seeing * will get ANN cardioversion * severe tricuspid regurgitation and moderate mitral regurgitation * Per Cardiology * moderate pulmonary hypertension * edema secondary to above * Will add more Lasix tomorrow * myelofibrosis with pancytopenia * history of hypertension Subjective: Feels a little bit anxious. Still with some edema better Objective: Vital Signs Temp Pulse Resp BP Pulse Ox 37.1 C 149 H 18 125/79 H 91 L 05/17/17 11:27 05/17/17 14:23 05/17/17 14:23 05/17/17 14:23 05/17/17 14:23 Laboratory Results 05/17/17 03:28 05/17/17 10:40 05/16/17 05/17/17 05/18/17 05:59 05:59 05:59 Intake Total 240 Balance 240 PT 15.6 SEC (12.0-15.0) H 05/17/17 10:40 INR 1.24 (0.83-1.16) H 05/17/17 10:40 Discussed with Cardiology Tele personally viewed interpreted AFib - Physical Exam Constitutional: no apparent distress, appears nourished, not in pain Eyes: anicteric sclera, EOMI Ears, Nose, Mouth, Throat: moist mucous membranes, hearing normal Cardiovascular: irregularly irregular, edema (1+) Respiratory: no respiratory distress, no rales or rhonchi, clear to auscultation Gastrointestinal: normoactive bowel sounds, soft, non-tender abdomen, no palpable masses Skin: warm Neurologic: AAOx3 Psychiatric: interacting appropriately, not anxious, not encephalopathic, thought process linear ICD10 Worksheet Patient Problems: Problems Problem Status Onset Atrial fibrillation Acute Pulmonary edema Acute Anemia Acute Primary localized osteoarthritis of right hip Acute Myelofibrosis Chronic
--- NOTE | 2017-05-17 16:42 | ECHO ---
[id number] + + [address] : : [place] [address] : : [phone] + + Transesophageal Echocardiographic Report + + :Name: WAQAS WERNER Study Date: 05/17/2017 12:48 PM : : Hospital Admission Number: [id number] : :: 1940 Gender: Female : :Age: 76 yrs Race: WH : :Reason For Study: Mj DESHPANDE : :History: New onset of Atrial Fibrillation : + + Left Ventricle The left ventricular ejection fraction is normal. The rhythm is atrial fibrillation. Atria Injection of contrast documented no interatrial shunt. The interatrial septum is intact with no evidence for an atrial septal defect. The left atrium is severely dilated. No left atrial mass or thrombus visualized. No thrombus is detected in the left atrial appendage. The right atrium is severely dilated. Mitral Valve There is moderate mitral regurgitation. Tricuspid Valve There is severe tricuspid regurgitation. Aortic Valve The aortic valve is trileaflet. There is no aortic stenosis. There is no aortic insufficiency. Pulmonic Valve The pulmonic valve is normal in structure and function. There is no pulmonic valvular regurgitation. Vessels The aortic root is normal size. Pericardium There is no pericardial effusion. Conclusion A 2D transesophageal echocardiogram with color flow Doppler was performed. The left ventricular ejection fraction is normal. The rhythm is atrial fibrillation Injection of contrast documented no interatrial shunt. The interatrial septum is intact with no evidence for an atrial septal defect. The left atrium is severely dilated. The right atrium is severely dilated. No left atrial mass or thrombus visualized. No thrombus is detected in the left atrial appendage. There is moderate mitral regurgitation. There is severe tricuspid regurgitation. The aortic valve is trileaflet. There is no pericardial effusion. Final Reading Physician: Dario Kendall signed on 05/17/2017 04:40 PM Ordering Physician: Toby Galan Performed By: Wilfrid Dickinson MD
[2017-05-17] MEDS ORDERED: BACITRACIN OINTMENT 1 PACKET TP ONE (17:03)
[2017-05-17] MEDS ORDERED: CEPACOL LOZENGE PO PRN (18:16)
[2017-05-17] MEDS ORDERED: AMIODARONE A.FIB-18HR INFSN (ORDER 3/3) IV ONE (20:00)
[2017-05-17] MEDS: APIXABAN 5 MG TAB PO SCH (21:10)
[2017-05-18 08:55] VITALS: RESP 15; TEMP 98; O2SAT 99
[2017-05-18] MEDS: CHOLECALCIFEROL VIT D3 1,000 UNITS TAB PO SCH (09:11)
[2017-05-18] MEDS: APIXABAN 5 MG TAB PO SCH (09:11)
--- NOTE | 2017-05-18 11:29 | CPEKG ---
Heart Rate: 66 RR Interval: 909 P-R Interval: 124 QRSD Interval: 94 QT Interval: 412 QTC Interval: 432 P [place]: 116 QRS [place]: 12 T Wave [place]: -15 EKG Severity - ABNORMAL ECG - EKG Impression: SINUS RHYTHM EKG Impression: LEFT ATRIAL ABNORMALITY EKG Impression: PROBABLE ANTEROSEPTAL INFARCT, AGE INDETERM EKG Impression: BORDERLINE T ABNORMALITIES, INFERIOR AND ANTERIOR LEADS EKG Impression: COMPARED WITH 17 MAY 2017 AT 13:54, T ABNL SLIGHTLY IMPROVED Electronically Signed By: Geovanna Sadler 18-May-2017 14:10:39
[2017-05-18] MEDS ORDERED: FUROSEMIDE 20 MG TAB PO SCH (12:00)
--- NOTE | 2017-05-18 12:09 | PDCARPN ---
Cardiology Progress Note Chief Complaint: leg edema Assessment/Plan: Assessment: The patient is a 76 y/o F with a history of myelofibrosis admitted with new onset atrial fibrillation related to valvular disease (at least moderate MR, severe TR and moderate PHTN). She is s/p ANN/CV by Dr. Dickinson yesterday and then loaded with Amiodarone. She is currently in NSR but was in a ectopic atrial rhythm versus flutter earlier this morning. She feels better in NSR. Plan: PAF with RVR- related to valvular disease- s/p ANN/CV and Amiodarone load. Currently in NSR. Will continue Metoprolol 25mg daily and Amiodarone 200mg daily. She has a CHADS VASc score of 5 and will remain on Eliquis 5mg BID. Diastolic CHF- mildly fluid overloaded. D/c home on Lasix 20mg daily. She will follow up at our office in one week. Valvular heart disese- Reassess in 4 weeks. Consider mitral clip versus CV surgery with intervention of the tricuspid and bicuspid valve. Abnormal EKG- consider eval for CAD with a nuclear stress test if she does not decide to proceed with CV surgery (would need cath) as out patient. 05/18/17 12:10 Subjective: Still complaining of mild lower extremity edema but overall feels much better today. Reviewed/Discussed With: hospitalist Objective: Vital Signs (8 Hrs) Temp Pulse Resp BP Pulse Ox 05/18/17 08:00 36.7 C 78 15 112/62 99 05/18/17 04:00 36.8 C 87 16 108/81 H 96 Intake/Output (24 Hrs) 05/17/17 05/18/17 05/19/17 05:59 05:59 05:59 Intake Total 985 Balance 985 Intake: Oral (ml) 750 IV Infused (ml) 235 Amiodarone HCl 200 ml @ 65 33.333 mls/hr IV ONCE ONE Rx#:[id number] Amiodarone HCl 540 mg In 170 D5w 300 ml @ 16.667 mls/ hr IV ONCE ONE Rx#: [id number] Other: Weight 63.5 kg Number of Voids Toilet 1 1 Result Diagrams: 05/17/17 03:28 05/17/17 10:40 EKG: NSR - Physical Exam Cardiovascular: regular rate and rhythm, systolic murmur, other (mild edema bilaterally) Peripheral Pulses: 2+: dorsalis-pedis (R), dorsalis-pedis (L) Respiratory: inspiratory crackles Neurologic: AAOx3 ICD10 Worksheet Patient Problems: Problems Problem Status Onset Atrial fibrillation Acute Pulmonary edema Acute Anemia Acute Primary localized osteoarthritis of right hip Acute Myelofibrosis Chronic
[2017-05-18] MEDS: METOPROLOL TARTRATE 50 MG TAB PO SCH (12:27)
[2017-05-18 12:36] VITALS: BP 121/61; PULSE 69
--- NOTE | 2017-05-18 14:24 | GDS ---
[f rep st] DISCHARGE SUMMARY DISCHARGE DIAGNOSES: 1. New onset atrial fibrillation with rapid ventricular response and with severe tricuspid regurgita tion and moderate mitral regurgitation. 2. Acute diastolic congestive heart failure exacerbation. 3. History of hypertension. 4. History of myelofibrosis with pancytopenia. HISTORY: This is a 76-year-old female, who presented with edema and shortness of breath. HOSPITAL COURSE: The patient was found to be in atrial fibrillation with rapid ventricular response. Initial attempts to rate control was done with diltiazem. The following morning Cardiology saw the patient and attempted ANN cardioversion. ANN did not show any clot in the atrium but did show signi ficant tricuspid regurgitation. Cardioversion was unsuccessful. She was then loaded with amiodarone , and the following morning she had converted to sinus rhythm. She will be discharged home with cont inued amiodarone and beta ceferino with close followup with Cardiology. DISPOSITION: Home. DISCHARGE MEDICATIONS: She is going to resume her home medications, except lisinopril, which will be discontinued. In addition, she will be given metoprolol 25 mg b.i.d., amiodarone 200 mg daily, and Lasix 20 mg daily. FOLLOWUP INSTRUCTIONS: She is instructed to follow up with Cardiology in 2 weeks. TIME SPENT: Greater than 30 minutes was spent on discharge. /[id number]/MODL
[2017-05-18] MEDS ORDERED: Estradiol [Yuvafem] 10 MCG VG SCH (17:08)
== END 2017-05-18 16:00 | disposition home or self-care (01) | DRG 308 ==
LOC: F2W 17:09 → OBSVTOIN 05-17 14:55
PROVIDERS: ADMIT Internal Medicine; ATTEND Internal Medicine
PROC: B245ZZ4 Ultrasonography of Left Heart, Transesophageal (ICD-10-PCS; principal; 2017-05-17)
PROC: 5A2204Z Restoration of Cardiac Rhythm, Single (ICD-10-PCS; principal; 2017-05-17)
DX: I48.91 Unspecified atrial fibrillation (principal); I50.31 Acute diastolic (congestive) heart failure; I27.2 Other secondary pulmonary hypertension; I36.1 Nonrheumatic tricuspid (valve) insufficiency; I34.0 Nonrheumatic mitral (valve) insufficiency; D75.89 Other specified diseases of blood and blood-forming organs; I10 Essential (primary) hypertension; Z85.828 Personal history of other malignant neoplasm of skin
CPT/HCPCS: 93005-PO; 96374; G0378; G0463-PO; J0282; J1650; J1940; J2704

== ENCOUNTER → 2017-05-30 | Outpatient (CLI) | payer OTHER | LOC: FIMAGING 09:59 | PROVIDERS: ATTEND Physician Assistant | DX: R60.9 Edema, unspecified (principal); I48.91 Unspecified atrial fibrillation; R06.00 Dyspnea, unspecified; Z79.01 Long term (current) use of anticoagulants ==

== ENCOUNTER → 2017-06-30 | Outpatient (CLI) | payer OTHER | LOC: BHFA 13:15 | PROVIDERS: ATTEND Internal Medicine Cardiovascular Disease | DX: I50.9 Heart failure, unspecified (principal); I48.91 Unspecified atrial fibrillation ==

== ENCOUNTER → 2017-07-04 | Outpatient (CLI) | payer OTHER | LOC: BMCIMAGING 13:20 | PROVIDERS: ATTEND Internal Medicine | DX: Z12.31 Encounter for screening mammogram for malignant neoplasm of breast (principal); R92.8 Other abnormal and inconclusive findings on diagnostic imaging of breast | CPT/HCPCS: G0202 ==

== ENCOUNTER → 2017-07-19 | Outpatient (CLI) | payer OTHER | LOC: BMCIMAGING 10:54 | PROVIDERS: ATTEND Internal Medicine | DX: Z12.39 Encounter for other screening for malignant neoplasm of breast (principal); R92.8 Other abnormal and inconclusive findings on diagnostic imaging of breast | CPT/HCPCS: G0206 ==

== ENCOUNTER → 2017-10-05 | Outpatient (CLI) | payer OTHER | LOC: BHFA 14:00 | PROVIDERS: ATTEND Internal Medicine Cardiovascular Disease | DX: Z79.899 Other long term (current) drug therapy (principal); I48.91 Unspecified atrial fibrillation ==

== ENCOUNTER → 2018-07-03 | Outpatient (CLI) | payer OTHER | LOC: FIMAGING 12:23 | PROVIDERS: ATTEND Internal Medicine Cardiovascular Disease | DX: J44.9 Chronic obstructive pulmonary disease, unspecified (principal); I51.7 Cardiomegaly; Z79.899 Other long term (current) drug therapy ==

== ENCOUNTER → 2018-08-20 | Outpatient (CLI) | payer OTHER | LOC: BHFA 11:30 | PROVIDERS: ATTEND Internal Medicine Interventional Cardiology | DX: I50.9 Heart failure, unspecified (principal); I48.91 Unspecified atrial fibrillation ==

== ENCOUNTER 2018-10-09 08:49 | Day surgery (SDC) | payer OTHER ==
[2018-10-09] MEDS ORDERED: BENZOCAINE UNIT DOSE SPRAY HURRICAINE MM ONE (08:50)
[2018-10-09] MEDS ORDERED: MIDAZOLAM 2 MG/2 ML VIAL IVP ONE (08:50)
[2018-10-09] MEDS ORDERED: fentaNYL 100 MCG/2 ML INJ IVP ONE (08:50)
[2018-10-09] MEDS ORDERED: NS 500 ML IV ONE (08:50)
[2018-10-09] MEDS ORDERED: LIDOCAINE 1% 5 ML SDV ONE (09:37)
[2018-10-09] MEDS ORDERED: PROPOFOL 200 MG/20 ML VIAL ONE ×2 (09:37→10:43)
--- NOTE | 2018-10-09 09:44 | POSTANESTH ---
Post Anesthetic Evaluation Cardiovascular Status: Normal, Stable Respiratory Status: Normal, Stable Level of Consciousness/Mental Status: Can Participate in Eval, Moderately Sleepy Pain Control: Adequate, Prn Tx Ordered Nausea/Vomiting Control: Adequate, Prn Tx Ordered Complications Possibly Related to Anesthesia: None Noted
--- NOTE | 2018-10-09 09:48 | PDANEPAE ---
ANE History of Present Illness 78 yo female with severe MR for ANN evaluation of valve. ANE Past Medical History - Cardiovascular History Hx Hypertension: Yes Hx Arrhythmias: Yes Hx Chest Pain: No Hx Coronary Artery / Peripheral Vascular Disease: No Hx CHF / Valvular Disease: Yes Hx Palpitations: No Cardiovascular History Comment: PCP MONITORS BP MEDS. severe MR and TR, chronic diastolic CHF. h/o Afib with CV in 2017 - Pulmonary History Hx COPD: No Hx Asthma/Reactive Airway Disease: No Hx Recent Upper Respiratory Infection: No Hx Oxygen in Use at Home: No Hx Sleep Apnea: No Pulmonary History Comment: exertional SOB felt to be secondary to CHF, pulmonary HTN - Neurologic History Hx Cerebrovascular Accident: No Hx Seizures: No Hx Dementia: No - Endocrine History Hx Diabetes: No Hypothyroid: No Hyperthyroid: No Obesity: no - Renal History Hx Renal Disorders: Yes Renal History Comment: HX OF UTI'S - Liver History Hx Hepatic Disorders: No - Neurological & Psychiatric Hx Hx Neurological and Psychiatric Disorders: No - Cancer History Hx Cancer: No Cancer History Comment: SQUAMOUS CELL REMOVED FROM LEGS AND FOREHEAD - Congenital Disorder History Hx Congenital Disorders: No - GI History Hx Gastrointestinal Disorders: Yes Gastrointestinal History Comment: CONSTIPATION- USES MOM PRN - Other Health History Other Health History: myelofibrosis W/SPLENOMEGALY, anemia/thrombocytopenia. - TRANSFUSION 07/09/2015. EYE INJECTIONS FOR MAC DEGENERATION Q3-4 MONTHS. - Chronic Pain History Chronic Pain: Yes (HIP PAIN) - Surgical History Prior Surgeries: L ING HERNIA 12/2014. LEFT KNEE SCOPE 12/2012. CATARACTS LEFT 2011 RIGHT 2012. BILATERAL INGUINAL HERNIA REPAIR 2005. SINUS SURGERY 2005 ANE Review of Systems Review of Systems: - Systems Constitutional: Reports: other (fatigue, increased SOB) Cardiac: Reports: edema Hematologic/Lymphatic: Reports: anemia ANE Patient History - Allergies Allergies/Adverse Reactions: Penicillins Allergy (Verified 05/16/17 14:21) Itching BEE STINGS Allergy (Uncoded 12/29/14 15:20) - Home Medications Home Medications: Apixaban [Eliquis] 2.5 mg PO BID 10/09/18 [Last Taken 10/09/18 06:30] Metoprolol Succinate Xr [Toprol Xl 25 mg (*)] 25 mg PO DAILY 10/09/18 [Last Taken 10/09/18 06:30] Spironolactone 25 mg PO DAILY 10/09/18 [Last Taken 10/09/18 06:30] Torsemide 20 mg PO DAILY 10/09/18 [Last Taken 10/08/18] - Anes Hx Anes Hx: no prior problems - Smoking Hx Smoking Status: Former smoker - Family Anes Hx Family Anes Hx: neg - N/A Family Hx Anesthesia Complications: NONE ANE Labs/Vital Signs - Labs - CBC HGB: 9.9 HCT: 32 Platelet Count: 64 - Labs - BMP Sodium: 137 Potassium: 4.1 - Vital Signs Vital Signs: reviewed preoperatively; see RN documention for details Height: 165.1 cm Weight: 58.967 kg ANE Physical Exam - Airway Neck exam: decreased ROM Mallampati Score: Class 1 Mouth exam: normal dental/mouth exam - Pulmonary Pulmonary: clear to auscultation - Cardiovascular Cardiovascular: regular rate and rhythym - ASA Status ASA Status: IV ANE Anesthesia Plan Anesthesia Plan: GA with mask Total IV Anesthesia: Yes
--- NOTE | 2018-10-09 10:21 | PDHPUP ---
History & Physical Update H&P update statement: This history and physical update is based on an assessment of the patient which was completed after admission or registration (within 24 hours), but prior to the surgery/procedure. H&P update: H&P reviewed & patient examined, no change in patient's condition since H&P completed ([id number])
--- NOTE | 2018-10-09 11:50 | ECHO ---
[email or web address] [address] Main: [phone] Fax: Transesophageal Echocardiography Name: WAQAS WERNER MR#: [id number] Study Date: 10/09/2018 Study Time: 10:00 AM Date of : 1940 Age: 78 year(s) Height: ( ) Weight: ( ) BSA: Gender: Female Examination: ANN Indication: Pre MitraClip Image Quality: Adequate Contrast: Requested by: Geovanna Sadler Heart Rate: Rhythm: BP: / Procedure Staff Media Relations Coordinator: Franca Wallace XANDER Reading Physician: Geovanna Sadler MD Requesting Provider: José Miguel Maguire ANN Exam Details Patient Consent: Risks, alternatives of procedure explained to patient, informed consent obtained. Conclusions: Normal size left ventricle. Normal global systolic LV function. The left atrium is severely dilated. An agitated saline study was performed and was negative for intracardiac shunting. No thrombus in left appendage. The right atrium is severely dilated. 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 There may also be involvement of A1 and P1 coaptation. There is moderate mitral valve regurgitation with multiple jets. The length of the posterior leaflet at 0 degrees measures 1.2 cm. The length of the posterior leaflet at 135 degrees was .8 cm. The ERO Volume was 11 ml. The regurgitant fraction was 24%. The MV mean gradient was 1 mmhg. The MV mid interatrial septum to mitral valve coaptation is between 3.8 and 4.3 cm. The aortic valve is tri-leaflet. Trivial aortic valve regurgitation. No aortic valve stenosis is present. Mild to moderate tricuspid valve regurgitation. Right ventricular systolic pressure measures 43mmHg. No pericardial effusion. Measurements: Chambers Valvular Assessment AV/MV Valvular Assessment TV/PV Patient: WAQAS WERNER Study Date: 10/09/2018 Page 1 of 2 10:00 AM Normal Normal Normal Name Value Range Name Value Range Name Value Range LVOTd 2.1 cm 2.1 cm mm MV meanP mmHg ( - ) TR Vmax: 3.09 mm/s ( - ) TR PGmax: 38 mmHg ( - ) syst. PAP: 43 mmHg ( - ) Additional Measurements: Valvular Assessment AV/MV Valvular Assessment TV/PV Name Value Name Value MV VTI: 32.80 cm CVP (est.): 5 mmHg MR ERO: 0.070 cm2 MR PISA radius: 4 mm MR Reg. Volume: 12 ml Findings: Left Ventricle: Normal size left ventricle. Normal global systolic LV function. Right Ventricle: Normal size right ventricle. Left Atrium: The left atrium is severely dilated. An agitated saline study was performed and was negative for intracardiac shunting. Left Atrial Appendage: Good color flow doppler in the left atrial appendage. No thrombus in left appendage. Right Atrium: The right atrium is severely dilated. 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 There may also be involvement of A1 and P1 coaptation. There is moderate mitral valve regurgitation with multiple jets. The length of the posterior leaflet at 0 degrees measures 1.2 cm. The length of the posterior leaflet at 135 degrees was .8 cm. The ERO Volume was 11 ml. The regurgitant fraction was 24%. The MV mean gradient was 1 mmhg. The MV mid interatrial septum to mitral valve coaptation is between 3.8 and 4.3 cm. Aortic Valve: The aortic valve is tri-leaflet. Trivial aortic valve regurgitation. No aortic valve stenosis is present. Tricuspid Valve: The tricuspid valve appears normal. Mild to moderate tricuspid valve regurgitation. The pulmonary artery pressure is mildly increased. Right ventricular systolic pressure measures 43mmHg. Pulmonic Valve: The pulmonic valve is normal in appearance. Mild pulmonic valve regurgitation is noted. Pulmonary Vein: The pulmonary vein systolic inflow demonstrated blunted waveforms on both right and left sides. Pericardium: No pericardial effusion. l1n (No Signature Object) Patient: WAQAS WERNER Study Date: 10/09/2018 Page 2 of 2 10:00 AM [id number]
== END 2018-10-09 12:36 | disposition home or self-care (01) ==
LOC: FCATH 08:49
PROVIDERS: ATTEND Internal Medicine Cardiovascular Disease
PROC: B246ZZ4 Ultrasonography of Right and Left Heart, Transesophageal (ICD-10-PCS; principal; 2018-10-09)
DX: I34.1 Nonrheumatic mitral (valve) prolapse (principal); I34.0 Nonrheumatic mitral (valve) insufficiency; R06.00 Dyspnea, unspecified; I36.1 Nonrheumatic tricuspid (valve) insufficiency; I48.91 Unspecified atrial fibrillation; I11.0 Hypertensive heart disease with heart failure; I50.32 Chronic diastolic (congestive) heart failure; I27.20 Pulmonary hypertension, unspecified; Z79.01 Long term (current) use of anticoagulants; Z87.440 Personal history of urinary (tract) infections; Z87.891 Personal history of nicotine dependence; Z82.49 Family history of ischemic heart disease and other diseases of the circulatory system; Z88.0 Allergy status to penicillin
CPT/HCPCS: J2704

== ENCOUNTER → 2018-10-16 | Outpatient (CLI) | payer OTHER | LOC: FIMAGING 15:01 | PROVIDERS: ATTEND Internal Medicine Cardiovascular Disease | DX: R05 Cough (principal); I48.91 Unspecified atrial fibrillation; I70.0 Atherosclerosis of aorta; Z79.899 Other long term (current) drug therapy ==

== ENCOUNTER → 2018-11-28 | Outpatient (CLI) | payer OTHER | LOC: FIMAGING 10:57 | PROVIDERS: ATTEND Internal Medicine Critical Care Medicine | DX: R05 Cough (principal); J98.4 Other disorders of lung; T46.2X5A Adverse effect of other antidysrhythmic drugs, initial encounter ==

== ENCOUNTER 2019-02-26 20:23 | Emergency (ER) | payer OTHER | END 2019-02-26 21:59 | disposition home or self-care (01) ==